=== PATIENT | female | born 1965 | race Caucasian/White ===

== ENCOUNTER 2019-11-17 21:41 | Emergency (ER) | payer OTHER ==
[~2019-11-17] VITALS: Ht 154.9 cm; Wt 61.7 kg
[~2019-11-17 21:41] MED LIST: SYNTHROID125 MCG
[2019-11-17] MEDS ORDERED: KETO10TA2 PO (22:44)
[2019-11-17] MEDS ORDERED: MEDROLPACK PO (22:44)
[2019-11-17] MEDS ORDERED: TEGRETOL XR100 MG PO (22:44)
== END 2019-11-17 22:54 | disposition home or self-care (01) ==
LOC: ER 21:41
DX: G50.0 Trigeminal neuralgia (principal)